=== PATIENT | male | born 1945 | race Caucasian/White ===

== ENCOUNTER 2019-02-15 12:47 | Outpatient (REF) | payer OTHER, SELFPAY | END 2019-02-15 13:07 | LOC: LBN 12:47 | PROVIDERS: PCP Internal Medicine | DX: I65.29 Occlusion and stenosis of unspecified carotid artery (principal); G45.9 Transient cerebral ischemic attack, unspecified; Z79.01 Long term (current) use of anticoagulants | CPT/HCPCS: 85610 ==